=== PATIENT | female | born 1950 | race Caucasian/White ===

== ENCOUNTER 2020-11-21 10:26 | Outpatient (CLI) | payer MEDICARE, SELFPAY ==
[2020-11-21 11:54] LABS: Abs Immature Grans 0.03 10^3/uL (0.0-0.06); Absolute Basophil Count 0.05 10^3/uL (0.0-0.2); Absolute Eosinophil Count 0.21 10^3/uL (0.0-0.7); Absolute Lymphocyte Count 2.22 10^3/uL (1.2-3.4); Absolute Neutrophil Count 7.66 10^3/uL (1.2-6.7); Basophils % 0.5; HCT 39.7 % (36.0-46.0); HGB 12.6 g/dL (11.2-15.7); Immature Grans % 0.3; Lymphocytes % 20.8; MCH 28.1 pg (27.0-33.0); MCHC 31.7 % (32.0-36.0); MCV 88.6 fL (80-95); MPV 9.1 fL (8.0-11.0); Monocytes % 4.7; Neutrophils % 71.7; Nucleated RBC 0 %; Platelet Count 257 10^3/uL (130-400); RBC 4.48 10^6/uL (3.93-5.22); RDW 13.4 % (11.7-14.6); RDW-SD 43.5 fL; WBC 10.67 10^3/uL (4.4-10.8)
[2020-11-21 12:14] LABS: ALT 17 U/L (14-59); AST 13 U/L (15-37); Albumin 3.3 g/dL (3.4-5.0); Alkaline Phosphatase 57 U/L (46-116); BUN 18 mg/dL (7-18); Bilirubin, Total 0.5 mg/dL (0.2-1.0); CREATININE 0.71 mg/dL (0.55-1.02); Chloride 101 mmol/L (98-107); Glucose 116 mg/dL (74-106); Potassium 3.5 mmol/L (3.5-5.1); Sodium 140 mmol/L (136-145); Total Protein 6.8 g/dL (6.4-8.2)
[2020-11-21 23:59] LABS: CEA 10.8 ng/mL (See Note)
[2020-11-27 14:15] LABS: DPYD Predicted Toxicity Risk Normal
== END 2020-11-21 10:46 ==
PROVIDERS: PCP Internal Medicine Hematology & Oncology; Visit Provider Internal Medicine Hematology & Oncology
DX: C20 Malignant neoplasm of rectum (principal)
CPT/HCPCS: 36415; 80053; 81232; 82378; 85025

== ENCOUNTER 2020-12-05 04:58 | Outpatient (RCR) | payer MEDICARE, SELFPAY ==
[2020-12-05 12:23] LABS: Abs Immature Grans 0.03 10^3/uL (0.0-0.06); Absolute Basophil Count 0.07 10^3/uL (0.0-0.2); Absolute Eosinophil Count 0.15 10^3/uL (0.0-0.7); Absolute Monocyte Count 0.46 10^3/uL (0.1-0.8); Absolute Neutrophil Count 6.85 10^3/uL (1.2-6.7); Basophils % 0.8; Eosinophils % 1.6; HCT 38.8 % (36.0-46.0); HGB 12.6 g/dL (11.2-15.7); Immature Grans % 0.3; Lymphocytes % 18.4; MCH 28.3 pg (27.0-33.0); MCHC 32.5 % (32.0-36.0); MCV 87.2 fL (80-95); MPV 9.2 fL (8.0-11.0); Neutrophils % 73.9; Nucleated RBC 0 %; Platelet Count 260 10^3/uL (130-400); RBC 4.45 10^6/uL (3.93-5.22); RDW 13.2 % (11.7-14.6); RDW-SD 42.2 fL; WBC 9.26 10^3/uL (4.4-10.8)
[2020-12-05] MEDS: Heparin 500 UNITS/5 ML SYRINGE IV (12:31)
[2020-12-05] MEDS: Normal Saline Flush 10 ML SYR IVP (12:31)
[2020-12-05 12:36] LABS: ALT 14 U/L (14-59); AST 10 U/L (15-37); Albumin 3.2 g/dL (3.4-5.0); Alkaline Phosphatase 56 U/L (46-116); Anion Gap 4.7 mmol/L (3-11); BUN 14 mg/dL (7-18); Bilirubin, Total 0.4 mg/dL (0.2-1.0); CO2 34.3 mmol/L (21.0-32.0); CREATININE 0.7 mg/dL (0.55-1.02); Calcium 8.8 mg/dL (8.5-10.1); Chloride 100 mmol/L (98-107); Glucose 117 mg/dL (74-106); Potassium 3.5 mmol/L (3.5-5.1); Sodium 139 mmol/L (136-145); Total Protein 6.8 g/dL (6.4-8.2)
[2020-12-05 22:20] LABS: CEA 11.1 ng/mL (See Note)
== END 2020-12-07 23:59 | disposition home or self-care (01) ==
LOC: INF 04:58
PROVIDERS: PCP Internal Medicine Hematology & Oncology; Visit Provider Internal Medicine Hematology & Oncology
DX: C20 Malignant neoplasm of rectum (principal); Z45.2 Encounter for adjustment and management of vascular access device
CPT/HCPCS: 36591; 80053; 82378; 85025

== ENCOUNTER 2021-01-02 04:30 | Outpatient (RCR) | payer MEDICARE, SELFPAY ==
[2020-12-19] MEDS: Normal Saline Flush 10 ML SYR IVP (09:32)
[2020-12-19] MEDS: Heparin 500 UNITS/5 ML SYRINGE IV (09:33)
[2020-12-19 09:39] LABS: Abs Immature Grans 0.05 10^3/uL (0.0-0.06); Absolute Basophil Count 0.04 10^3/uL (0.0-0.2); Absolute Eosinophil Count 0.16 10^3/uL (0.0-0.7); Absolute Lymphocyte Count 1.85 10^3/uL (1.2-3.4); Absolute Monocyte Count 0.39 10^3/uL (0.1-0.8); Absolute Neutrophil Count 8.18 10^3/uL (1.2-6.7); Basophils % 0.4; Eosinophils % 1.5; HCT 37.9 % (36.0-46.0); HGB 12.3 g/dL (11.2-15.7); Immature Grans % 0.5; Lymphocytes % 17.3; MCH 27.9 pg (27.0-33.0); MCHC 32.5 % (32.0-36.0); MCV 85.9 fL (80-95); MPV 9.5 fL (8.0-11.0); Monocytes % 3.7; Neutrophils % 76.6; Nucleated RBC 0 %; Platelet Count 212 10^3/uL (130-400); RBC 4.41 10^6/uL (3.93-5.22); RDW 12.4 % (11.7-14.6); RDW-SD 38.9 fL; WBC 10.67 10^3/uL (4.4-10.8)
[2020-12-19 10:02] LABS: ALT 16 U/L (14-59); AST 13 U/L (15-37); Albumin 3.3 g/dL (3.4-5.0); Alkaline Phosphatase 58 U/L (46-116); Anion Gap 5.7 mmol/L (3-11); BUN 14 mg/dL (7-18); Bilirubin, Total 0.3 mg/dL (0.2-1.0); CO2 33.3 mmol/L (21.0-32.0); CREATININE 0.6 mg/dL (0.55-1.02); Calcium 8.9 mg/dL (8.5-10.1); Chloride 100 mmol/L (98-107); Glucose 136 mg/dL (74-106); Potassium 3.1 mmol/L (3.5-5.1); Sodium 139 mmol/L (136-145); Total Protein 6.9 g/dL (6.4-8.2)
[2020-12-19 18:54] LABS: CEA 10.3 ng/mL (See Note)
[2021-01-02] MEDS: Heparin 500 UNITS/5 ML SYRINGE IV (11:04)
[2021-01-02] MEDS: Normal Saline Flush 10 ML SYR IVP (11:04)
[2021-01-02 11:11] LABS: Abs Immature Grans 0.02 10^3/uL (0.0-0.06); Absolute Basophil Count 0.03 10^3/uL (0.0-0.2); Absolute Eosinophil Count 0.09 10^3/uL (0.0-0.7); Absolute Lymphocyte Count 2.21 10^3/uL (1.2-3.4); Absolute Monocyte Count 0.54 10^3/uL (0.1-0.8); Basophils % 0.5; Eosinophils % 1.6; HCT 35.7 % (36.0-46.0); HGB 11.5 g/dL (11.2-15.7); Immature Grans % 0.3; Lymphocytes % 38.2; MCH 27.5 pg (27.0-33.0); MCHC 32.2 % (32.0-36.0); MCV 85.4 fL (80-95); MPV 9.3 fL (8.0-11.0); Monocytes % 9.3; Neutrophils % 50.1; Nucleated RBC 0 %; Platelet Count 215 10^3/uL (130-400); RBC 4.18 10^6/uL (3.93-5.22); RDW-SD 39.6 fL; WBC 5.79 10^3/uL (4.4-10.8)
[2021-01-02 11:23] LABS: ALT 17 U/L (14-59); AST 16 U/L (15-37); Albumin 3.1 g/dL (3.4-5.0); Alkaline Phosphatase 56 U/L (46-116); BUN 15 mg/dL (7-18); Bilirubin, Total 0.3 mg/dL (0.2-1.0); CREATININE 0.7 mg/dL (0.55-1.02); Calcium 8.8 mg/dL (8.5-10.1); Chloride 101 mmol/L (98-107); Glucose 118 mg/dL (74-106); Potassium 3.4 mmol/L (3.5-5.1); Sodium 140 mmol/L (136-145); Total Protein 6.5 g/dL (6.4-8.2)
== END 2021-01-04 23:59 | disposition home or self-care (01) ==
LOC: INF 04:30
PROVIDERS: PCP Internal Medicine Hematology & Oncology; Visit Provider Internal Medicine Hematology & Oncology
DX: C20 Malignant neoplasm of rectum (principal); Z45.2 Encounter for adjustment and management of vascular access device
CPT/HCPCS: 36591; 80053; 82378; 85025

== ENCOUNTER 2021-01-30 04:43 | Outpatient (RCR) | payer MEDICARE, SELFPAY ==
[2021-01-16 07:59] LABS: Abs Immature Grans 0.01 10^3/uL (0.0-0.06); Absolute Basophil Count 0.03 10^3/uL (0.0-0.2); Absolute Eosinophil Count 0.04 10^3/uL (0.0-0.7); Absolute Lymphocyte Count 1.93 10^3/uL (1.2-3.4); Absolute Monocyte Count 0.54 10^3/uL (0.1-0.8); Absolute Neutrophil Count 2.83 10^3/uL (1.2-6.7); Basophils % 0.6; Eosinophils % 0.7; HCT 37.3 % (36.0-46.0); HGB 12.1 g/dL (11.2-15.7); Immature Grans % 0.2; Lymphocytes % 35.9; MCH 27.9 pg (27.0-33.0); MCHC 32.4 % (32.0-36.0); MCV 86.1 fL (80-95); MPV 8.6 fL (8.0-11.0); Neutrophils % 52.6; Nucleated RBC 0 %; Platelet Count 158 10^3/uL (130-400); RBC 4.33 10^6/uL (3.93-5.22); RDW 14.1 % (11.7-14.6); RDW-SD 42.7 fL; WBC 5.38 10^3/uL (4.4-10.8)
[2021-01-16] MEDS: Heparin 500 UNITS/5 ML SYRINGE IV (08:04)
[2021-01-16] MEDS: Normal Saline Flush 10 ML SYR IVP (08:05)
[2021-01-16 08:14] LABS: ALT 18 U/L (14-59); AST 13 U/L (15-37); Albumin 3.1 g/dL (3.4-5.0); Alkaline Phosphatase 60 U/L (46-116); BUN 13 mg/dL (7-18); Bilirubin, Total 0.3 mg/dL (0.2-1.0); CREATININE 0.8 mg/dL (0.55-1.02); Calcium 8.8 mg/dL (8.5-10.1); Chloride 103 mmol/L (98-107); Glucose 135 mg/dL (74-106); Potassium 3.7 mmol/L (3.5-5.1); Sodium 141 mmol/L (136-145); Total Protein 6.5 g/dL (6.4-8.2)
[2021-01-16 18:19] LABS: CEA 8.4 ng/mL (See Note)
[2021-01-30 08:08] LABS: Abs Immature Grans 0.03 10^3/uL (0.0-0.06); Absolute Basophil Count 0.04 10^3/uL (0.0-0.2); Absolute Eosinophil Count 0.07 10^3/uL (0.0-0.7); Absolute Lymphocyte Count 1.63 10^3/uL (1.2-3.4); Absolute Monocyte Count 0.42 10^3/uL (0.1-0.8); Absolute Neutrophil Count 4.27 10^3/uL (1.2-6.7); Basophils % 0.6; Eosinophils % 1.1; HGB 11.6 g/dL (11.2-15.7); Immature Grans % 0.5; Lymphocytes % 25.2; MCH 27.8 pg (27.0-33.0); MCHC 32.2 % (32.0-36.0); MCV 86.1 fL (80-95); Monocytes % 6.5; Neutrophils % 66.1; Nucleated RBC 0 %; Platelet Count 125 10^3/uL (130-400); RBC 4.18 10^6/uL (3.93-5.22); RDW-SD 45.2 fL; WBC 6.46 10^3/uL (4.4-10.8)
[2021-01-30] MEDS: Heparin 500 UNITS/5 ML SYRINGE IV (08:09)
[2021-01-30] MEDS: Normal Saline Flush 10 ML SYR IVP (08:09)
[2021-01-30 08:20] LABS: ALT 18 U/L (14-59); AST 14 U/L (15-37); Albumin 3.3 g/dL (3.4-5.0); Alkaline Phosphatase 66 U/L (46-116); Anion Gap 5.2 mmol/L (3-11); BUN 13 mg/dL (7-18); Bilirubin, Total 0.4 mg/dL (0.2-1.0); CO2 32.8 mmol/L (21.0-32.0); CREATININE 0.6 mg/dL (0.55-1.02); Calcium 8.9 mg/dL (8.5-10.1); Chloride 103 mmol/L (98-107); Glucose 140 mg/dL (74-106); Potassium 3.6 mmol/L (3.5-5.1); Sodium 141 mmol/L (136-145); Total Protein 6.6 g/dL (6.4-8.2)
[2021-01-30 17:41] LABS: CEA 8.5 ng/mL (See Note)
== END 2021-02-04 23:59 | disposition home or self-care (01) ==
LOC: INF 04:43
PROVIDERS: PCP Internal Medicine Hematology & Oncology; Visit Provider Internal Medicine Hematology & Oncology
DX: C20 Malignant neoplasm of rectum (principal); Z45.2 Encounter for adjustment and management of vascular access device
CPT/HCPCS: 36591; 80053; 82378; 85025

== ENCOUNTER 2021-02-27 13:30 | Outpatient (RCR) | payer MEDICARE, SELFPAY ==
[2021-02-13 09:08] LABS: Abs Immature Grans 0.02 10^3/uL (0.0-0.06); Absolute Basophil Count 0.05 10^3/uL (0.0-0.2); Absolute Eosinophil Count 0.07 10^3/uL (0.0-0.7); Absolute Lymphocyte Count 1.67 10^3/uL (1.2-3.4); Absolute Monocyte Count 0.52 10^3/uL (0.1-0.8); Absolute Neutrophil Count 3.21 10^3/uL (1.2-6.7); Basophils % 0.9; Eosinophils % 1.3; HCT 38.6 % (36.0-46.0); HGB 12.4 g/dL (11.2-15.7); Immature Grans % 0.4; Lymphocytes % 30.1; MCH 27.7 pg (27.0-33.0); MCHC 32.1 % (32.0-36.0); MCV 86.2 fL (80-95); MPV 9.4 fL (8.0-11.0); Monocytes % 9.4; Neutrophils % 57.9; Nucleated RBC 0 %; RBC 4.48 10^6/uL (3.93-5.22); RDW 16.4 % (11.7-14.6); RDW-SD 49.5 fL; WBC 5.54 10^3/uL (4.4-10.8)
[2021-02-13 09:18] LABS: ALT 24 U/L (14-59); AST 21 U/L (15-37); Albumin 3.5 g/dL (3.4-5.0); Alkaline Phosphatase 75 U/L (46-116); Anion Gap 7.1 mmol/L (3-11); BUN 11 mg/dL (7-18); Bilirubin, Total 0.3 mg/dL (0.2-1.0); CO2 29.9 mmol/L (21.0-32.0); CREATININE 0.7 mg/dL (0.55-1.02); Calcium 9.3 mg/dL (8.5-10.1); Chloride 102 mmol/L (98-107); Glucose 155 mg/dL (74-106); Potassium 3.4 mmol/L (3.5-5.1); Sodium 139 mmol/L (136-145); Total Protein 6.9 g/dL (6.4-8.2)
[2021-02-13 09:25] LABS: Platelet Count 142 10^3/uL (130-400)
[2021-02-13] MEDS: Normal Saline Flush 10 ML SYR 300 ML IVP (11:21)
[2021-02-13] MEDS: Heparin 500 UNITS/5 ML SYRINGE (11:24)
[2021-02-13 18:36] LABS: CEA 8.6 ng/mL (See Note)
[2021-02-27] MEDS: Heparin 500 UNITS/5 ML SYRINGE (14:02)
[2021-02-27] MEDS: Normal Saline Flush 10 ML SYR 300 ML IVP (14:02)
[2021-02-27 14:12] LABS: Abs Immature Grans 0.01 10^3/uL (0.0-0.06); Absolute Basophil Count 0.04 10^3/uL (0.0-0.2); Absolute Eosinophil Count 0.05 10^3/uL (0.0-0.7); Absolute Lymphocyte Count 2.19 10^3/uL (1.2-3.4); Absolute Monocyte Count 0.48 10^3/uL (0.1-0.8); Basophils % 0.7; Eosinophils % 0.9; HCT 36.8 % (36.0-46.0); HGB 11.9 g/dL (11.2-15.7); Immature Grans % 0.2; MCH 28.3 pg (27.0-33.0); MCHC 32.3 % (32.0-36.0); MCV 87.4 fL (80-95); MPV 9.3 fL (8.0-11.0); Monocytes % 8.3; Neutrophils % 51.9; Nucleated RBC 0 %; RBC 4.21 10^6/uL (3.93-5.22); RDW 17.2 % (11.7-14.6); RDW-SD 52.7 fL; WBC 5.77 10^3/uL (4.4-10.8)
[2021-02-27 14:24] LABS: ALT 25 U/L (14-59); AST 23 U/L (15-37); Albumin 3.4 g/dL (3.4-5.0); Alkaline Phosphatase 76 U/L (46-116); Anion Gap 8.2 mmol/L (3-11); BUN 11 mg/dL (7-18); Bilirubin, Total 0.5 mg/dL (0.2-1.0); CO2 31.8 mmol/L (21.0-32.0); CREATININE 0.7 mg/dL (0.55-1.02); Calcium 9.1 mg/dL (8.5-10.1); Chloride 102 mmol/L (98-107); Glucose 113 mg/dL (74-106); Potassium 3.2 mmol/L (3.5-5.1); Sodium 142 mmol/L (136-145); Total Protein 6.7 g/dL (6.4-8.2)
[2021-02-27 14:58] LABS: Anisocytosis 1+; Diff Comment Diff Reviewed; Platelet Count 97 10^3/uL (130-400)
[2021-02-27 22:17] LABS: CEA 9.2 ng/mL (See Note)
== END 2021-03-06 23:59 | disposition home or self-care (01) ==
LOC: INF 13:30
PROVIDERS: PCP Internal Medicine Hematology & Oncology; Visit Provider Internal Medicine Hematology & Oncology
DX: C20 Malignant neoplasm of rectum (principal); Z45.2 Encounter for adjustment and management of vascular access device
CPT/HCPCS: 36415; 36591; 80053; 82378; 85025

== ENCOUNTER 2021-03-13 05:05 | Outpatient (RCR) | payer MEDICARE, SELFPAY ==
[2021-03-13 13:39] LABS: Abs Immature Grans 0.02 10^3/uL (0.0-0.06); Absolute Basophil Count 0.04 10^3/uL (0.0-0.2); Absolute Eosinophil Count 0.06 10^3/uL (0.0-0.7); Absolute Lymphocyte Count 2.06 10^3/uL (1.2-3.4); Absolute Neutrophil Count 2.21 10^3/uL (1.2-6.7); Basophils % 0.8; Eosinophils % 1.2; HCT 36.3 % (36.0-46.0); HGB 11.6 g/dL (11.2-15.7); Immature Grans % 0.4; Lymphocytes % 42.1; MCH 28.3 pg (27.0-33.0); MCV 88.5 fL (80-95); MPV 8.9 fL (8.0-11.0); Monocytes % 10.2; Neutrophils % 45.3; Nucleated RBC 0 %; Platelet Count 121 10^3/uL (130-400); RDW 19.4 % (11.7-14.6); RDW-SD 61.6 fL; WBC 4.89 10^3/uL (4.4-10.8)
[2021-03-13 13:50] LABS: ALT 18 U/L (14-59); AST 17 U/L (15-37); Albumin 3.1 g/dL (3.4-5.0); Alkaline Phosphatase 63 U/L (46-116); Anion Gap 4.1 mmol/L (3-11); BUN 14 mg/dL (7-18); Bilirubin, Total 0.6 mg/dL (0.2-1.0); CO2 33.9 mmol/L (21.0-32.0); CREATININE 0.7 mg/dL (0.55-1.02); Calcium 8.8 mg/dL (8.5-10.1); Chloride 104 mmol/L (98-107); Glucose 112 mg/dL (74-106); Potassium 3.6 mmol/L (3.5-5.1); Sodium 142 mmol/L (136-145); Total Protein 6.3 g/dL (6.4-8.2)
[2021-03-13] MEDS: Normal Saline Flush 10 ML SYR IVP (14:57)
[2021-03-13] MEDS: Heparin 500 UNITS/5 ML SYRINGE IV (14:57)
[2021-03-16 11:50] LABS: CEA 8.7 ng/mL (See Note)
== END 2021-04-06 23:59 | disposition home or self-care (01) ==
LOC: INF 05:05
PROVIDERS: PCP Internal Medicine Hematology & Oncology; Visit Provider Internal Medicine Hematology & Oncology
DX: C20 Malignant neoplasm of rectum (principal); Z45.2 Encounter for adjustment and management of vascular access device
CPT/HCPCS: 36591; 80053; 82378; 85025

== ENCOUNTER 2021-05-01 04:54 | Outpatient (RCR) | payer MEDICARE, SELFPAY ==
[2021-04-10] MEDS: Heparin 500 UNITS/5 ML SYRINGE (10:26)
[2021-04-10] MEDS: Normal Saline Flush 10 ML SYR IVP (10:27)
[2021-04-10 10:32] LABS: Abs Immature Grans 0.01 10^3/uL (0.0-0.06); Absolute Basophil Count 0.07 10^3/uL (0.0-0.2); Absolute Eosinophil Count 0.23 10^3/uL (0.0-0.7); Absolute Lymphocyte Count 1.72 10^3/uL (1.2-3.4); Absolute Monocyte Count 0.46 10^3/uL (0.1-0.8); Absolute Neutrophil Count 3.86 10^3/uL (1.2-6.7); Basophils % 1.1; Eosinophils % 3.6; HCT 38.4 % (36.0-46.0); HGB 12.6 g/dL (11.2-15.7); Immature Grans % 0.2; Lymphocytes % 27.1; MCH 30.1 pg (27.0-33.0); MCHC 32.8 % (32.0-36.0); MCV 91.6 fL (80-95); MPV 8.9 fL (8.0-11.0); Monocytes % 7.2; Neutrophils % 60.8; Nucleated RBC 0 %; Platelet Count 184 10^3/uL (130-400); RBC 4.19 10^6/uL (3.93-5.22); RDW 16.7 % (11.7-14.6); RDW-SD 56.5 fL; WBC 6.35 10^3/uL (4.4-10.8)
[2021-04-10 10:46] LABS: ALT 14 U/L (14-59); AST 13 U/L (15-37); Albumin 3.2 g/dL (3.4-5.0); Alkaline Phosphatase 70 U/L (46-116); Anion Gap 4.3 mmol/L (3-11); BUN 15 mg/dL (7-18); Bilirubin, Total 0.4 mg/dL (0.2-1.0); CO2 34.7 mmol/L (21.0-32.0); CREATININE 0.6 mg/dL (0.55-1.02); Calcium 8.7 mg/dL (8.5-10.1); Chloride 105 mmol/L (98-107); Glucose 118 mg/dL (74-106); Potassium 3.6 mmol/L (3.5-5.1); Sodium 144 mmol/L (136-145); Total Protein 6.6 g/dL (6.4-8.2)
[2021-04-10 13:20] LABS: Vitamin B12 407 pg/mL (193-986)
[2021-04-10 17:03] LABS: CEA 7.6 ng/mL (See Note)
[2021-04-20 09:57] LABS: Abs Immature Grans 0.03 10^3/uL (0.0-0.06); Absolute Basophil Count 0.04 10^3/uL (0.0-0.2); Absolute Lymphocyte Count 1.08 10^3/uL (1.2-3.4); Absolute Monocyte Count 0.27 10^3/uL (0.1-0.8); Absolute Neutrophil Count 4.16 10^3/uL (1.2-6.7); Basophils % 0.7; Eosinophils % 3.5; HCT 37.7 % (36.0-46.0); Immature Grans % 0.5; Lymphocytes % 18.7; MCH 30.2 pg (27.0-33.0); MCHC 31.8 % (32.0-36.0); MPV 8.7 fL (8.0-11.0); Monocytes % 4.7; Neutrophils % 71.9; Nucleated RBC 0 %; Platelet Count 159 10^3/uL (130-400); RBC 3.97 10^6/uL (3.93-5.22); RDW 14.8 % (11.7-14.6); RDW-SD 52.5 fL; WBC 5.78 10^3/uL (4.4-10.8)
[2021-04-20 10:08] LABS: ALT 12 U/L (14-59); AST 10 U/L (15-37); Alkaline Phosphatase 59 U/L (46-116); Anion Gap 4.4 mmol/L (3-11); BUN 17 mg/dL (7-18); Bilirubin, Total 0.3 mg/dL (0.2-1.0); CO2 34.6 mmol/L (21.0-32.0); CREATININE 0.7 mg/dL (0.55-1.02); Calcium 8.6 mg/dL (8.5-10.1); Chloride 104 mmol/L (98-107); Glucose 127 mg/dL (74-106); Potassium 3.3 mmol/L (3.5-5.1); Sodium 143 mmol/L (136-145); Total Protein 6.2 g/dL (6.4-8.2)
[2021-04-20] MEDS: Normal Saline Flush 10 ML SYR IVP (10:08)
[2021-04-20] MEDS: Heparin 500 UNITS/5 ML SYRINGE IV (10:08)
[2021-04-24 10:47] LABS: Abs Immature Grans 0.02 10^3/uL (0.0-0.06); Absolute Basophil Count 0.03 10^3/uL (0.0-0.2); Absolute Eosinophil Count 0.17 10^3/uL (0.0-0.7); Absolute Lymphocyte Count 0.94 10^3/uL (1.2-3.4); Absolute Monocyte Count 0.31 10^3/uL (0.1-0.8); Absolute Neutrophil Count 3.13 10^3/uL (1.2-6.7); Basophils % 0.7; Eosinophils % 3.7; HCT 36.9 % (36.0-46.0); HGB 11.7 g/dL (11.2-15.7); Immature Grans % 0.4; Lymphocytes % 20.4; MCH 30.2 pg (27.0-33.0); MCHC 31.7 % (32.0-36.0); MCV 95.1 fL (80-95); MPV 8.4 fL (8.0-11.0); Monocytes % 6.7; Neutrophils % 68.1; Nucleated RBC 0 %; Platelet Count 122 10^3/uL (130-400); RBC 3.88 10^6/uL (3.93-5.22); RDW 15.3 % (11.7-14.6); RDW-SD 53.2 fL
[2021-04-24] MEDS: Heparin 500 UNITS/5 ML SYRINGE IV (10:53)
[2021-04-24] MEDS: Normal Saline Flush 10 ML SYR IVP (10:53)
[2021-04-24 11:03] LABS: ALT 16 U/L (14-59); AST 13 U/L (15-37); Alkaline Phosphatase 60 U/L (46-116); Anion Gap 4.3 mmol/L (3-11); BUN 16 mg/dL (7-18); Bilirubin, Total 0.4 mg/dL (0.2-1.0); CO2 35.7 mmol/L (21.0-32.0); CREATININE 0.5 mg/dL (0.55-1.02); Calcium 8.4 mg/dL (8.5-10.1); Chloride 104 mmol/L (98-107); Glucose 118 mg/dL (74-106); Potassium 3.6 mmol/L (3.5-5.1); Sodium 144 mmol/L (136-145); Total Protein 6.2 g/dL (6.4-8.2)
[2021-04-24 18:00] LABS: CEA 7.7 ng/mL (See Note)
[2021-05-01 09:04] LABS: Abs Immature Grans 0.02 10^3/uL (0.0-0.06); Absolute Basophil Count 0.04 10^3/uL (0.0-0.2); Absolute Eosinophil Count 0.09 10^3/uL (0.0-0.7); Absolute Lymphocyte Count 0.58 10^3/uL (1.2-3.4); Absolute Monocyte Count 0.28 10^3/uL (0.1-0.8); Basophils % 0.8; Eosinophils % 1.9; HCT 37.6 % (36.0-46.0); HGB 11.9 g/dL (11.2-15.7); Immature Grans % 0.4; Lymphocytes % 12.3; MCH 30.5 pg (27.0-33.0); MCHC 31.6 % (32.0-36.0); MCV 96.4 fL (80-95); MPV 8.6 fL (8.0-11.0); Monocytes % 5.9; Neutrophils % 78.7; Nucleated RBC 0 %; Platelet Count 144 10^3/uL (130-400); RDW 15.9 % (11.7-14.6); RDW-SD 53.8 fL; WBC 4.71 10^3/uL (4.4-10.8)
[2021-05-01 09:15] LABS: ALT 14 U/L (14-59); AST 15 U/L (15-37); Albumin 3.2 g/dL (3.4-5.0); Alkaline Phosphatase 55 U/L (46-116); Anion Gap 3.8 mmol/L (3-11); BUN 11 mg/dL (7-18); Bilirubin, Total 0.4 mg/dL (0.2-1.0); CO2 35.2 mmol/L (21.0-32.0); CREATININE 0.7 mg/dL (0.55-1.02); Calcium 8.6 mg/dL (8.5-10.1); Chloride 103 mmol/L (98-107); Glucose 128 mg/dL (74-106); Potassium 3.6 mmol/L (3.5-5.1); Sodium 142 mmol/L (136-145); Total Protein 6.4 g/dL (6.4-8.2)
[2021-05-01] MEDS: Normal Saline Flush 10 ML SYR IVP (09:31)
== END 2021-05-06 23:59 | disposition home or self-care (01) ==
LOC: INF 04:54
PROVIDERS: PCP Internal Medicine Hematology & Oncology; Visit Provider Internal Medicine Hematology & Oncology
DX: C20 Malignant neoplasm of rectum (principal); Z45.2 Encounter for adjustment and management of vascular access device
CPT/HCPCS: 36591; 80053; 82378; 82607; 85025

== ENCOUNTER 2021-05-22 05:27 | Outpatient (RCR) | payer MEDICARE, SELFPAY ==
[2021-05-08 09:28] LABS: Abs Immature Grans 0.01 10^3/uL (0.0-0.06); Absolute Basophil Count 0.03 10^3/uL (0.0-0.2); Absolute Eosinophil Count 0.11 10^3/uL (0.0-0.7); Absolute Lymphocyte Count 0.54 10^3/uL (1.2-3.4); Absolute Monocyte Count 0.27 10^3/uL (0.1-0.8); Absolute Neutrophil Count 3.47 10^3/uL (1.2-6.7); Basophils % 0.7; Eosinophils % 2.5; HGB 11.8 g/dL (11.2-15.7); Immature Grans % 0.2; Lymphocytes % 12.2; MCH 31.1 pg (27.0-33.0); MCHC 31.9 % (32.0-36.0); MCV 97.4 fL (80-95); Monocytes % 6.1; Neutrophils % 78.3; Nucleated RBC 0 %; Platelet Count 139 10^3/uL (130-400); RDW 16.6 % (11.7-14.6); RDW-SD 58.9 fL; WBC 4.43 10^3/uL (4.4-10.8)
[2021-05-08] MEDS: Normal Saline Flush 10 ML SYR IVP (09:38)
[2021-05-08 09:43] LABS: ALT 13 U/L (14-59); AST 12 U/L (15-37); Albumin 3.1 g/dL (3.4-5.0); Alkaline Phosphatase 53 U/L (46-116); Anion Gap 6.6 mmol/L (3-11); BUN 12 mg/dL (7-18); Bilirubin, Total 0.3 mg/dL (0.2-1.0); CO2 34.4 mmol/L (21.0-32.0); CREATININE 0.7 mg/dL (0.55-1.02); Calcium 8.4 mg/dL (8.5-10.1); Chloride 103 mmol/L (98-107); Glucose 120 mg/dL (74-106); Potassium 3.3 mmol/L (3.5-5.1); Sodium 144 mmol/L (136-145); Total Protein 6.1 g/dL (6.4-8.2)
[2021-05-08 17:24] LABS: CEA 7.3 ng/mL (See Note)
[2021-05-15] MEDS: Normal Saline Flush 10 ML SYR IVP (09:12)
[2021-05-15] MEDS: Heparin 500 UNITS/5 ML SYRINGE IV (09:12)
[2021-05-15 09:18] LABS: Abs Immature Grans 0.01 10^3/uL (0.0-0.06); Absolute Basophil Count 0.03 10^3/uL (0.0-0.2); Absolute Eosinophil Count 0.12 10^3/uL (0.0-0.7); Absolute Monocyte Count 0.35 10^3/uL (0.1-0.8); Absolute Neutrophil Count 3.88 10^3/uL (1.2-6.7); Basophils % 0.6; Eosinophils % 2.5; HCT 36.8 % (36.0-46.0); HGB 11.9 g/dL (11.2-15.7); Immature Grans % 0.2; Lymphocytes % 10.2; MCH 31.7 pg (27.0-33.0); MCHC 32.3 % (32.0-36.0); MCV 98.1 fL (80-95); MPV 7.9 fL (8.0-11.0); Monocytes % 7.2; Neutrophils % 79.3; Nucleated RBC 0 %; Platelet Count 105 10^3/uL (130-400); RBC 3.75 10^6/uL (3.93-5.22); RDW 17.4 % (11.7-14.6); RDW-SD 62.7 fL; WBC 4.89 10^3/uL (4.4-10.8)
[2021-05-15 10:27] LABS: ALT 18 U/L (14-59); AST 15 U/L (15-37); Albumin 3.1 g/dL (3.4-5.0); Alkaline Phosphatase 59 U/L (46-116); Anion Gap 6.9 mmol/L (3-11); BUN 11 mg/dL (7-18); Bilirubin, Total 0.4 mg/dL (0.2-1.0); CO2 33.1 mmol/L (21.0-32.0); CREATININE 0.7 mg/dL (0.55-1.02); Calcium 8.7 mg/dL (8.5-10.1); Chloride 104 mmol/L (98-107); Glucose 116 mg/dL (74-106); Potassium 3.6 mmol/L (3.5-5.1); Sodium 144 mmol/L (136-145); Total Protein 6.1 g/dL (6.4-8.2)
[2021-05-15 16:57] LABS: CEA 7.4 ng/mL (See Note)
[2021-05-22 12:06] LABS: Abs Immature Grans 0.01 10^3/uL (0.0-0.06); Absolute Basophil Count 0.03 10^3/uL (0.0-0.2); Absolute Lymphocyte Count 0.57 10^3/uL (1.2-3.4); Absolute Neutrophil Count 3.97 10^3/uL (1.2-6.7); Basophils % 0.6; HCT 36.2 % (36.0-46.0); HGB 11.8 g/dL (11.2-15.7); Immature Grans % 0.2; Lymphocytes % 11.2; MCH 32.3 pg (27.0-33.0); MCHC 32.6 % (32.0-36.0); MCV 99.2 fL (80-95); MPV 8.4 fL (8.0-11.0); Monocytes % 7.9; Neutrophils % 78.1; Nucleated RBC 0 %; Platelet Count 118 10^3/uL (130-400); RBC 3.65 10^6/uL (3.93-5.22); RDW 17.6 % (11.7-14.6); RDW-SD 63.1 fL; WBC 5.08 10^3/uL (4.4-10.8)
[2021-05-22 12:19] LABS: ALT 15 U/L (14-59); AST 15 U/L (15-37); Albumin 3.1 g/dL (3.4-5.0); Alkaline Phosphatase 55 U/L (46-116); Anion Gap 2.4 mmol/L (3-11); BUN 9 mg/dL (7-18); Bilirubin, Total 0.5 mg/dL (0.2-1.0); CO2 33.6 mmol/L (21.0-32.0); CREATININE 0.6 mg/dL (0.55-1.02); Calcium 8.4 mg/dL (8.5-10.1); Chloride 107 mmol/L (98-107); Glucose 111 mg/dL (74-106); Sodium 143 mmol/L (136-145); Total Protein 6.2 g/dL (6.4-8.2)
[2021-05-22] MEDS: Normal Saline Flush 10 ML SYR IVP (12:50)
== END 2021-06-06 23:59 | disposition home or self-care (01) ==
LOC: INF 05:27
PROVIDERS: PCP Internal Medicine Hematology & Oncology; Visit Provider Internal Medicine Hematology & Oncology
DX: C20 Malignant neoplasm of rectum (principal); Z45.2 Encounter for adjustment and management of vascular access device
CPT/HCPCS: 36591; 80053; 82378; 85025

== ENCOUNTER 2021-06-11 03:09 | Outpatient (RCR) | payer MEDICARE, SELFPAY ==
[2021-06-11] MEDS: Heparin 500 UNITS/5 ML SYRINGE IV (13:14)
[2021-06-11] MEDS: Normal Saline Flush 10 ML SYR IVP (13:14)
[2021-06-11 13:23] LABS: Abs Immature Grans 0.01 10^3/uL (0.0-0.06); Absolute Basophil Count 0.05 10^3/uL (0.0-0.2); Absolute Eosinophil Count 0.17 10^3/uL (0.0-0.7); Absolute Monocyte Count 0.38 10^3/uL (0.1-0.8); Basophils % 0.9; Eosinophils % 3.2; HCT 39.4 % (36.0-46.0); HGB 12.8 g/dL (11.2-15.7); Immature Grans % 0.2; Lymphocytes % 11.3; MCH 31.8 pg (27.0-33.0); MCHC 32.5 % (32.0-36.0); MCV 97.8 fL (80-95); MPV 8.6 fL (8.0-11.0); Monocytes % 7.2; Neutrophils % 77.2; Nucleated RBC 0 %; Platelet Count 153 10^3/uL (130-400); RBC 4.03 10^6/uL (3.93-5.22); RDW 15.8 % (11.7-14.6); RDW-SD 57.1 fL; WBC 5.31 10^3/uL (4.4-10.8)
[2021-06-11 13:37] LABS: ALT 14 U/L (14-59); AST 13 U/L (15-37); Albumin 3.3 g/dL (3.4-5.0); Alkaline Phosphatase 62 U/L (46-116); Anion Gap 2.7 mmol/L (3-11); BUN 11 mg/dL (7-18); Bilirubin, Total 0.5 mg/dL (0.2-1.0); CO2 35.3 mmol/L (21.0-32.0); CREATININE 0.5 mg/dL (0.55-1.02); Calcium 8.8 mg/dL (8.5-10.1); Chloride 105 mmol/L (98-107); Glucose 116 mg/dL (74-106); Potassium 3.6 mmol/L (3.5-5.1); Sodium 143 mmol/L (136-145); Total Protein 6.5 g/dL (6.4-8.2)
[2021-06-11 22:23] LABS: CEA 7.1 ng/mL (See Note)
== END 2021-07-07 23:59 | disposition home or self-care (01) ==
LOC: INF 03:09
PROVIDERS: PCP Internal Medicine Hematology & Oncology; Visit Provider Internal Medicine Hematology & Oncology
DX: C20 Malignant neoplasm of rectum (principal); Z45.2 Encounter for adjustment and management of vascular access device
CPT/HCPCS: 36591; 80053; 82378; 85025

== ENCOUNTER 2021-11-19 03:41 | Outpatient (RCR) | payer MEDICARE, SELFPAY ==
[2021-11-19] MEDS: Heparin 500 UNITS/5 ML SYRINGE IV (15:04)
[2021-11-19] MEDS: Normal Saline Flush 10 ML SYR IVP (15:04)
[2021-11-19 15:24] LABS: Abs Immature Grans 0.02 10^3/uL (0.0-0.06); Absolute Basophil Count 0.03 10^3/uL (0.0-0.2); Absolute Eosinophil Count 0.18 10^3/uL (0.0-0.7); Absolute Lymphocyte Count 1.06 10^3/uL (1.2-3.4); Absolute Neutrophil Count 4.84 10^3/uL (1.2-6.7); Basophils % 0.5; Eosinophils % 2.8; HGB 12.6 g/dL (11.2-15.7); Immature Grans % 0.3; Lymphocytes % 16.2; MCH 28.3 pg (27.0-33.0); MCHC 30.7 % (32.0-36.0); MCV 91.9 fL (80-95); MPV 8.6 fL (8.0-11.0); Monocytes % 6.1; Neutrophils % 74.1; Nucleated RBC 0 %; Platelet Count 234 10^3/uL (130-400); RBC 4.46 10^6/uL (3.93-5.22); RDW 14.5 % (11.7-14.6); RDW-SD 48.5 fL; WBC 6.53 10^3/uL (4.4-10.8)
[2021-11-19 15:53] LABS: ALT 15 U/L (14-59); AST 10 U/L (15-37); Albumin 3.3 g/dL (3.4-5.0); Alkaline Phosphatase 82 U/L (46-116); Anion Gap 5.1 mmol/L (3-11); BUN 14 mg/dL (7-18); Bilirubin, Total 0.2 mg/dL (0.2-1.0); CO2 33.9 mmol/L (21.0-32.0); CREATININE 0.6 mg/dL (0.55-1.02); Calcium 8.9 mg/dL (8.5-10.1); Chloride 104 mmol/L (98-107); Glucose 104 mg/dL (74-106); Potassium 4.4 mmol/L (3.5-5.1); Sodium 143 mmol/L (136-145)
== END 2021-12-07 23:59 | disposition home or self-care (01) ==
LOC: INF 03:41
PROVIDERS: PCP Internal Medicine Hematology & Oncology; Visit Provider Internal Medicine Hematology & Oncology
DX: C20 Malignant neoplasm of rectum (principal); Z45.2 Encounter for adjustment and management of vascular access device
CPT/HCPCS: 36415; 80053; 96523; 82378; 85025